=== PATIENT | male | born 1965 | race African-American/Black ===

== ENCOUNTER 2021-10-12 19:25 | Emergency (ER) | payer MEDICAID, SELFPAY ==
[2021-10-12 19:26] VITALS: BP 171/100; PULSE 76; RESP 18; TEMP 36.3; O2SAT 98; BMI 36.5
[2021-10-12 19:37] VITALS: BP 170/100; PULSE 78; RESP 14; O2SAT 99
--- NOTE | 2021-10-12 19:47 | CT_ITS ---
INDICATION: Dizziness EXAMINATION: CT BRAIN - CT Head or Brain W/O Contrast Injection TECHNIQUE: Multiple axial images were obtained of the head without intravenous contrast. A radiation dose optimization technique was used for this scan. IV Contrast dosage and agent: None. COMPARISON: None. FINDINGS: BRAIN PARENCHYMA: No intra- or extra-axial hemorrhage. No intracranial mass or mass effect. T[place]/white matter differentiation is maintained and there is no blurring of the basal ganglia. There is no hyperdense vessel. Right lenticulostriate region 1 cm CSF density likely representing prominent perivascular space. Posterior fossa structures are unremarkable. CSF SPACES: Appropriate for age. No hydrocephalus. Basal cisterns are patent. CALVARIUM, SKULL BASE, PARANASAL SINUSES AND MASTOID AIR CELLS: Clear. No discrete lytic or blastic abnormalities. ORBITS: Both globes, extraocular muscles, optic nerves and retrobulbar fat appear unremarkable. ASPECTS Score for Acute Strokes: 10 CT/Brain/Head without Contrast IMPRESSION: Negative Brain CT without contrast. Electronically Signed: Franc Durham DO at 20:51 EDT ,
--- NOTE | 2021-10-12 19:48 | EX.ED.DYSGE1 ---
HPI History of Present Illness Chief Complaint: Dizziness Narrative Narrative: Patient presents with dizziness and intermittent headaches that he has had for at least a week. He states he wakes up in the morning and feels dizzy. He states is worse when he tries to stand up he feels as if he is going to fall and has to sit back down. He states he has been out of his blood pressure medications for at least 2 months. However, when he gets headaches he states its not secondary to elevated blood pressure. He feels mildly presyncopal. He denies any chest pain or shortness of breath. No other symptoms. He states he went to [place] today and they gave him blood pressure medications and did nothing else so he presents again today because of his dizziness, worse with standing, and his near syncope. He denies any problems with urination, no other symptoms. [facility] Medical History Diabetes Hyperlipemia Hypertension Home Medications amlodipine 10 mg PO DAILY 10/12/21 [History Last Taken 10/12/21] atorvastatin 20 mg PO DAILY 10/12/21 [History Last Taken 10/11/21] metformin 500 mg PO BID 10/12/21 [History Last Taken 10/12/21] omeprazole 40 mg PO DAILY 10/12/21 [History Last Taken 10/12/21] Allergy/AdvReac Type Severity Reaction Status Date / Time Penicillins Allergy Itching Verified 10/12/21 19:27 tramadol AdvReac Vomiting Verified 10/12/21 19:27 Surgical History History of hip surgery Social History Smoking Status: Former smoker ROS ROS ED ROS Narrative Constitutional: No fever, no chills. HEENT: No sore throat. No neck pain. No loss of vision. No rhinorrhea. Cardiovascular: No chest pain. No palpitations. No pedal edema. Respiratory: No cough, no shortness of breath. Abdominal: No abdominal pain. No nausea. No vomiting. Genitourinary: No dysuria. No hematuria. Musculoskeletal: No myalgias. No arthralgias. Neurologic: Positive headaches. Positive dizziness. Positive lightheadedness. Skin: No rash. No change in color. Psychiatric: No depression. No anxiety. EXAM Physical Exam Narrative Exam Narrative: Afebrile. Vital signs noted. Blood pressure 171/100 HEENT: Normocephalic. Atraumatic. PERRL, EOMI. Neck soft and supple. No point tenderness or step off. Cardiovascular: Regular rate and rhythm. No murmurs, rubs, or gallops appreciated. Respiratory: No tachypnea. Lungs clear to auscultation bilaterally. Gastrointestinal: Abdomen soft, nontender, with normoactive bowel sounds. No rebound or guarding. Neurological: Awake. Alert. Nonfocal, nonlateralizing. Skin: No rash. Normal color. No pallor. Musculoskeletal: No pedal edema. Full range of motion extremities. Const Vital Signs: 10/12/21 19:26 10/12/21 19:37 10/12/21 20:50 Temperature 97.3 F L Temperature Source Temporal Pulse Rate 76 78 Pulse Rate [Lying] 73 Pulse Rate [Sitting (for 1 minute prior to obtaining)] 77 Pulse Rate [Standing (for 1 minute prior to obtaining)] 82 Respiratory Rate 18 14 Respiratory Pattern Normal Blood Pressure 171/100 H 170/100 H Blood Pressure [Lying] 149/91 H Blood Pressure [Sitting (for 1 minute prior to obtaining)] 156/103 H Blood Pressure [Standing (for 1 minute prior to obtaining)] 154/103 H Blood Pressure Mean 123 123 Blood Pressure Mean [Lying] 110 Blood Pressure Mean [Sitting (for 1 minute prior to obtaining)] 120 Blood Pressure Mean [Standing (for 1 minute prior to obtaining)] 120 Pulse Ox 98 99 Oxygen Delivery Method Room Air Room Air MDM MDM MDM Narrative Medical decision making narrative: Orthostatics, CT the brain, and basic laboratory work was obtained including CBC and CMP. He is not having any chest pain. He was administered hydralazine 10 mg intravenously. CBC shows normal white count of 8.0, hemoglobin normal at 14.8. Electrolyte panel is grossly unremarkable except for glucose of 119 with a normal anion gap of 6. LFTs are grossly unremarkable. CT of the brain shows no acute process. Orthostatics are negative. He was administered hydralazine 10 mg intravenously, and systolic blood pressure now in the 130's. He states whenever he sits up he gets dizzy. His EKG demonstrates normal sinus rhythm at 69 bpm without ectopy or acute ST changes, no STEMI. At this point in time, given his dizziness worse with standing, I offered him meclizine, but he declined. He did not want a prescription for anything. He was advised to keep a log of his blood pressures, and stand up slowly. He will follow-up with his primary care physician in the next 1 to 2 days. Return instructions were reviewed. Disposition is discharged home in stable condition. Lab Data Attestation: I reviewed the patient's lab results. Labs: Laboratory Results - last 24 hr 10/12/21 10/12/21 19:42 19:42 WBC 8.0 RBC 4.90 Hgb 14.8 Hct 44.7 MCV 91.2 MCH 30.2 MCHC 33.1 RDW Std Deviation 47.8 H RDW Coeff of Lindsay 14.1 Plt Count 188 MPV 10.7 Sodium 138 Potassium 3.7 Chloride 105 Carbon Dioxide 27.0 Anion Gap 6 BUN 15 Creatinine 1.07 Estim Creat Clear Calc 76.36 Est GFR (MDRD) Af Amer 93 Est GFR (MDRD) Non-Af 77 BUN/Creatinine Ratio 14.0 Glucose 119 H Calcium 8.9 Total Bilirubin 0.30 AST 19 ALT 33 Alkaline Phosphatase 94 Total Protein 7.3 Albumin 4.0 Globulin 3.3 Albumin/Globulin Ratio 1.2 Radiography Diagnostic Testing: Clinical Impression(s) from Imaging Studies Brain CT 10/12/21 19:47 IMPRESSION: Negative Brain CT without contrast. Electronically Signed: Franc Durham DO at 20:51 EDT , Discharge Plan Triage Chief Complaint: Dizziness ED Provider: Lito Brewer Dx/Rx/DC Orders Clinical Impression: Dizziness, Hypertension Instructions: ED Dizziness, Uncertain Cause, ED High Blood Pressure Hypertension Prescriptions: No Action atorvastatin 20 mg tablet 20 mg PO DAILY RF: 0 omeprazole 40 mg capsule,delayed release(DR/EC) 40 mg PO DAILY RF: 0 amlodipine 10 mg tablet 10 mg PO DAILY RF: 0 metformin 500 mg tablet extended release 24 hr 500 mg PO BID RF: 0 Primary Care Provider: Araseli Delgado NP Referrals: Danny,Araseli FISHERIES TECHNICIAN, FISHERIES TECHNICIAN-C [Primary Care Provider] - 1-2 Days if not improving Disposition Disposition: Home, Self Care
--- NOTE | 2021-10-12 19:51 | EKG12_ITS ---
Test Reason : DIZZINESS Blood Pressure : / mmHG Vent. Rate : 069 BPM Atrial Rate : 069 BPM P-R Int : 166 ms QRS Dur : 084 ms QT Int : 380 ms P-R-T Axes : 045 025 037 degrees QTc Int : 407 ms Normal sinus rhythm Nonspecific ST and T wave abnormality Abnormal ECG Confirmed by RUFINO CHEEMA, STANLEY ([id number]), order editor JAZMYNE VALENCIA ([id number]) on 10/13/2021 2:00:32 PM Referred By: GABE Confirmed By:TSANLEY JOY MD
[2021-10-12] MEDS: hydrALAZINE 20 MG/ML Vial 10 MG IV (19:56)
[2021-10-12 19:59] LABS: Hematocrit 44.7 % (40-54); Hemoglobin 14.8 g/dL (13.0-16.5); Mean Corp Hgb Conc 33.1 g/dL (32-36); Mean Corpuscular Hgb 30.2 pg (27.0-32.0); Mean Corpuscular Volume 91.2 fL (80-94); Mean Platelet Vol. 10.7 fl (6.2-12.0); Platelet Count 188 K/mm3 (150-450); RBC Distribution Width CV 14.1 % (11.6-14.6); RBC Distribution Width SD 47.8 fl (35.1-43.9)
[2021-10-12 20:16] LABS: ALB/GLOB Ratio 1.2 RATIO (0.9-2.4); AST(SGOT) 19 U/L (15-37); Alanine Aminotransfer ALT/SGPT 33 U/L (16-61); Alkaline Phosphatase 94 U/L (45-117); Anion Gap 6 (5-15); BUN 15 mg/dL (7-18); Calcium,Total 8.9 mg/dL (8.5-10.1); Chloride 105 mmol/L (98-107); Creatinine, Serum 1.07 mg/dL (0.70-1.30); EST Glomerular Filtration Rate 77 mL/min (>60); Est Glom Filt Rate - Afr Amer 93 mL/min (>60); Estimated Creatinine Clearance 76.36 ml/min; Globulin 3.3 g/dL (2.2-4.2); Glucose 119 mg/dL (74-106); Potassium 3.7 mmol/L (3.5-5.1); Protein, Total 7.3 g/dL (6.4-8.2); Sodium Level 138 mmol/L (136-145)
[2021-10-12 20:50] VITALS: BP 149/91; BP 154/103; BP 156/103; PULSE 73; PULSE 77; PULSE 82
[2021-10-12 21:39] VITALS: BP 135/91; PULSE 70; RESP 18; O2SAT 97
== END 2021-10-12 21:41 | disposition home or self-care (01) ==
PROVIDERS: Emergency Provider Emergency Medicine; PCP Nurse Practitioner Primary Care; Visit Provider Emergency Medicine
DX: R42 Dizziness and giddiness (principal); E11.9 Type 2 diabetes mellitus without complications; I10 Essential (primary) hypertension; E78.5 Hyperlipidemia, unspecified; Z87.891 Personal history of nicotine dependence; Z79.84 Long term (current) use of oral hypoglycemic drugs; Z79.899 Other long term (current) drug therapy
CPT/HCPCS: 70450; 80053; 85027; 93005; 96374; 99285; A4216

== ENCOUNTER 2021-12-15 08:27 | Emergency (ER) | payer MEDICARE, MEDICAID, SELFPAY ==
[2021-12-15 08:28] VITALS: BP 138/97; PULSE 72; RESP 18; TEMP 36.6; O2SAT 98; BMI 37.2
--- NOTE | 2021-12-15 09:04 | EDS_ITS ---
HPI History of Present Illness Chief Complaint: Back Narrative Narrative: 56-year-old male presenting with left posterior rib pain since Wednesday. Patient states he was sitting at his desk and he stood up and the pain started abruptly. He states that the pain radiates around the left flank into the central abdomen. He also states at times it radiates around to the right. Patient states the pain feels like a twisting. The pain is now constant. Its not associated with eating food. He does not have any nausea or vomiting. He denies fever or chills. He denies cough but does state he feels a little bit short of breath because of the pain in the left ribs/flank. Denies constipation or diarrhea. No urinary complaints. [facility] Medical History Diabetes Hyperlipemia Hypertension Neuropathy Home Medications amlodipine 10 mg tablet 10 mg PO DAILY blood pressure 10/12/21 [History Last Taken 10/12/21] atorvastatin 20 mg tablet 20 mg PO DAILY cholesterol 10/12/21 [History Last Taken 10/11/21] metformin 500 mg tablet,extended release 24 hr 500 mg PO BID diabetes 10/12/21 [History Last Taken 10/12/21] omeprazole 40 mg capsule,delayed release 40 mg PO DAILY GERD 10/12/21 [History Last Taken 10/12/21] gabapentin 300 mg capsule 300 mg PO TID 12/15/21 [History Last Taken Unknown] lisinopril 10 mg tablet 10 mg PO DAILY 12/15/21 [History Last Taken Unknown] naproxen 500 mg tablet (Naprosyn) 500 mg PO BID PRN pain #20 tabs 12/15/21 [Rx Last Taken Unknown] tizanidine 4 mg capsule (Zanaflex) 4 mg PO TID PRN muscle spasticity #20 caps 12/15/21 [Rx Last Taken Unknown] Allergy/AdvReac Type Severity Reaction Status Date / Time No Known Allergies Allergy Verified 12/15/21 08:30 Surgical History History of hip surgery Social History Smoking Status: Former smoker ROS ROS ED Eyes Eyes: Denies blurry vision or change in vision ENT ENT ED: Denies rhinorrhea or sore throat Cardiovascular Cardiovascular: Reports chest pain Respiratory/Chest Respiratory/Chest: Reports dyspnea and other Details: Left rib pain Gastrointestinal Gastrointestinal: Denies abdominal pain, constipation, diarrhea, melena, nausea or vomiting Genitourinary Genitourinary ED: Denies dysuria, hematuria or urinary frequency Musculoskeletal Musculoskeletal: Reports back pain Integumentary Denies abscess or Abrasions Neurologic Neurologic: Denies headache(s) or paresthesias Psychiatric Psychiatric: Denies anxiety or depression EXAM Physical Exam Const Vital Signs: 12/15/21 08:28 Temperature 97.9 F Temperature Source Temporal Pulse Rate 72 Respiratory Rate 18 Blood Pressure 138/97 H Blood Pressure Mean 110 Pulse Ox 98 Oxygen Delivery Method Room Air Positive well nourished General Appearance ED: NAD; Negative for pallor HEENT Reports moist mucous membranes Eyes PERRL and EOMs intact bilaterally Chest Wall Chest Narrative: Equal symmetric breath sounds and chest wall rise. Resp normal respiratory effort and clear to auscultation bilaterally Auscultation: Negative for rales, rhonchi or wheezes Cardio regular rate and regular rhythm GI normal to inspection, nondistended, normoactive bowel sounds Back/Spine normal to inspection and no thoracic nor lumbar tenderness General Back: CVA tenderness left Cervical Spine: Negative for cervical spine tenderness Extremity normal to inspection General Extremety ED: Negative for edema or tenderness General Extremity: Negative for edema Neuro oriented x3 Sensorium / Orientation: alert; Negative for confused Psych mental status grossly normal Skin no rashes or lesions noted General Skin Exam: Negative for jaundice or pallor MDM MDM MDM Narrative Medical decision making narrative: Patient presenting with left-sided back pain and does have CVA tenderness on exam although he has no symptoms of nausea, dysuria, hematuria. He states this started hurting when he stood up. Because the etiology is unclear an IV was established. Patient given morphine and Zofran. Blood work was obtained and h is CBC and CMP are unremarkable. Lipase normal. I obtained a left rib series due to the left-sided pain and mild shortness of breath and his left rib series on my interpretation shows no acute fracture, pneumothorax, other acute findings. Patient reevaluated and states he still had some pain so he was given Toradol. Urinalysis was negative for occult blood. There is no evidence of infection. I suspect patient likely has a thoracic strain. I will give him Zanaflex and Naprosyn for home. He is to follow-up with his PCP to ensure resolution. Impression: 1. Thoracic strain Lab Data Attestation: I reviewed the patient's lab results. Labs: Laboratory Results - last 24 hr 12/15/21 12/15/21 12/15/21 09:10 09:10 10:25 WBC 6.1 RBC 4.77 Hgb 14.4 Hct 43.1 MCV 90.4 MCH 30.2 MCHC 33.4 RDW Std Deviation 47.1 H RDW Coeff of Lindsay 14.3 Plt Count 188 MPV 10.5 Immature Gran % (Auto) 0.200 Neut % (Auto) 49.0 Lymph % (Auto) 38.3 [place] % (Auto) 9.9 Eos % (Auto) 2.3 Baso % (Auto) 0.3 Absolute Neuts (auto) 3.0 Absolute Lymphs (auto) 2.33 Nucleated RBC % 0 Sodium 138 Potassium 4.4 Chloride 107 Carbon Dioxide 29.0 Anion Gap 2 L BUN 10 Creatinine 1.05 Estim Creat Clear Calc 77.81 Est GFR (MDRD) Af Amer 95 Est GFR (MDRD) Non-Af 78 BUN/Creatinine Ratio 9.5 L Glucose 107 H Calcium 8.8 Total Bilirubin 0.30 AST 20 ALT 25 Alkaline Phosphatase 90 Total Protein 7.1 Albumin 3.8 Globulin 3.3 Albumin/Globulin Ratio 1.2 Lipase 198 Urine Color Yellow Urine Clarity Clear Urine pH 6.0 Ur Specific [place] 1.010 Urine Protein Negative Urine Glucose (UA) Normal Urine Ketones Negative Urine Occult Blood Negative Urine Nitrite Negative Urine Bilirubin Negative Urine Urobilinogen Normal Ur Leukocyte Esterase Negative Radiography Diagnostic Testing: Clinical Impression(s) from Imaging Studies Ribs w/Chest X-Ray 12/15/21 09:35 IMPRESSION: RIBS: Normal x-ray examination of the ribs. CHEST: Normal x-ray examination of the chest. Electronically Signed: Alex Salmon MD at 9:56 EDT , Discharge Plan Triage Chief Complaint: Back ED Provider: Tony Bergman Dx/Rx/DC Orders Instructions: ED Back Spasm, No Trauma Prescriptions: New tizanidine [Zanaflex] 4 mg capsule 4 mg PO TID PRN (Reason: muscle spasticity) Qty: 20 0RF naproxen [Naprosyn] 500 mg tablet 500 mg PO BID PRN (Reason: pain) Qty: 20 0RF No Action atorvastatin 20 mg tablet 20 mg PO DAILY Label Comments: take 1 tablet by mouth once daily omeprazole 40 mg capsule,delayed release(DR/EC) 40 mg PO DAILY Label Comments: take 1 capsule by mouth once daily BEFORE A MEAL amlodipine 10 mg tablet 10 mg PO DAILY Label Comments: take 1 tablet by mouth once daily metformin 500 mg tablet extended release 24 hr 500 mg PO BID Label Comments: take 1 tablet by mouth twice a day lisinopril 10 mg tablet 10 mg PO DAILY Label Comments: take 1 tablet by mouth once daily gabapentin 300 mg capsule 300 mg PO TID Label Comments: take 1 capsule by mouth three times a day Primary Care Provider: Araseli Delgado NP Referrals: Araseli Delgado NP, SANITATION LABORER-C [Primary Care Provider] - Disposition Disposition: Home, Self Care
[2021-12-15 09:17] LABS: Absolute Lymphocyte Count 2.33 X10^3/uL (0.83-4.51); Basophil# 0.02 X10^3/uL; Basophil% 0.3 % (0-1); Eosinophil# 0.14 X10^3/uL; Eosinophils% 2.3 % (0-5); Hematocrit 43.1 % (40-54); Hemoglobin 14.4 g/dL (13.0-16.5); Lymphocyte # 2.33 X10^3/ul (0.83-4.51); Lymphocyte % 38.3 % (19-41); Mean Corp Hgb Conc 33.4 g/dL (32-36); Mean Corpuscular Hgb 30.2 pg (27.0-32.0); Mean Corpuscular Volume 90.4 fL (80-94); Mean Platelet Vol. 10.5 fl (6.2-12.0); Monocyte% 9.9 % (0-10); NRBC Flagged by Analyzer 0 % (0-5); Neutrophil # 2.98 X10^3/uL (2.7-7.7); Platelet Count 188 K/mm3 (150-450); RBC Distribution Width CV 14.3 % (11.6-14.6); RBC Distribution Width SD 47.1 fl (35.1-43.9); Red Blood Count 4.77 M/mm3 (4.6-6.2); White Blood Count 6.1 K/mm3 (4.4-11.0)
[2021-12-15] MEDS: Ondansetron 4 MG/2 ML Vial IV (09:21)
[2021-12-15] MEDS: Morphine 4 MG/ML Syringe IV (09:21)
[2021-12-15 09:33] LABS: ALB/GLOB Ratio 1.2 RATIO (0.9-2.4); AST(SGOT) 20 U/L (15-37); Alanine Aminotransfer ALT/SGPT 25 U/L (16-61); Albumin, Serum 3.8 g/dL (3.2-5.0); Alkaline Phosphatase 90 U/L (45-117); Anion Gap 2 (5-15); BUN 10 mg/dL (7-18); BUN/Creat Ratio 9.5 RATIO (10-20); Calcium,Total 8.8 mg/dL (8.5-10.1); Chloride 107 mmol/L (98-107); Creatinine, Serum 1.05 mg/dL (0.70-1.30); EST Glomerular Filtration Rate 78 mL/min (>60); Est Glom Filt Rate - Afr Amer 95 mL/min (>60); Estimated Creatinine Clearance 77.81 ml/min; Globulin 3.3 g/dL (2.2-4.2); Glucose 107 mg/dL (74-106); Lipase 198 U/L (73-393); Potassium 4.4 mmol/L (3.5-5.1); Protein, Total 7.1 g/dL (6.4-8.2); Sodium Level 138 mmol/L (136-145)
--- NOTE | 2021-12-15 09:35 | RAD_ITS ---
STUDY: X-RAY - UNILATERAL RIBS ( LEFT ) WITH CHEST REASON FOR EXAM: Male, 56 years old. Atraumatic left lower rib pain. TECHNIQUE - RIBS: 4 view(s) of the ribs. TECHNIQUE - CHEST: Single PA view of the chest. COMPARISON: None. FINDINGS - RIBS: Normal visualized ribs without a demonstrated fracture. FINDINGS - CHEST: The lungs are clear and expanded. There is no demonstrated pleural abnormality. Normal size heart. Normal mediastinum and karin. Normal visualized pulmonary arteries. Normal visualized aortic arch and descending thoracic aorta. Normal visualized thoracic spine. Normal visualized ribs, clavicles, and shoulders. There is no demonstrated abnormality of the visualized soft tissue structures of the upper abdomen. RAD/Ribs Uni Min 3V w/PA Chest IMPRESSION: RIBS: Normal x-ray examination of the ribs. CHEST: Normal x-ray examination of the chest. Electronically Signed: Alex Salmon MD at 9:56 EDT ,
[2021-12-15] MEDS: Ketorolac 15 MG/ML Vial IV (09:46)
[2021-12-15 10:36] LABS: Bacteria 0 SEEN /hpf (None Seen); Mucous, Urine 0 SEEN /hpf (<or=2+); Red Blood Cells-Urine 0 SEEN /hpf (0-5); Squamous Epithelial Cells - UA 0 SEEN /hpf (0-5); White Blood Cells 0 SEEN /hpf (0-5)
[2021-12-15 10:38] LABS: Color, Urine Yellow (Yellow); Glucose, Dipstick Normal (Normal); Ketone-Dipstick Negative (Negative); Leukocyte Esterase-Dipstick Negative /ul (Negative); Nitrite-Dipstick Negative (Negative); Occult Blood-Urine Negative /ul (Negative); Protein-Dipstick Negative (Negative); Urine Bilirubin Dipstick Negative (Negative); Urine Clarity Clear (Clear); Urine Urobilinogen Normal (Normal)
== END 2021-12-15 11:13 | disposition home or self-care (01) ==
PROVIDERS: Emergency Provider Student in an Organized Health Care Education/Training Program; PCP Nurse Practitioner Primary Care; Visit Provider Student in an Organized Health Care Education/Training Program
DX: S29.019A Strain of muscle and tendon of unspecified wall of thorax, initial encounter (principal); E11.40 Type 2 diabetes mellitus with diabetic neuropathy, unspecified; I10 Essential (primary) hypertension; E78.5 Hyperlipidemia, unspecified; Z79.899 Other long term (current) drug therapy; Z79.84 Long term (current) use of oral hypoglycemic drugs; Z87.891 Personal history of nicotine dependence; X58.XXXA Exposure to other specified factors, initial encounter
CPT/HCPCS: 71101; 80053; 81001; 83690; 85025; 96374; 96375; 99283; A4216; J2405

== ENCOUNTER 2021-12-25 08:04 | Emergency (ER) | payer MEDICARE, MEDICAID, SELFPAY ==
[2021-12-25 08:05] VITALS: BP 153/88; PULSE 72; RESP 14; TEMP 36.1; O2SAT 98; BMI 35.7
--- NOTE | 2021-12-25 08:26 | EDS_ITS ---
HPI History of Present Illness Chief Complaint: Back Informant: patient Onset/Context/Timing Onset: Days (4) Context: Gradual Onset Timing: Continuous Quality: Sharp Location: Lumbar and Buttock Worsened by: improves with - (Laying, sitting) Relieved by: Nothing Associated Symptoms Associated Symptoms: Negative for Numbness, Tingling, Radiation to Right Leg, Radiation to Left Leg, Fever, Abdominal Pain, Dysuria, Unable to Ambulate, Unable to Transfer, Urinary Retention, Urinary Incontinence, Constipation or Fecal Incontinence Narrative Narrative: Patient presents with low back pain that has been getting worse over the last 4 days. Patient states it is in his lower lumbar area and sacral area. Patient states it is slightly worse than the left. Patient denies any radiation of the pain. Patient states the pain is worse with sitting and laying down. Patient states nothing seems to help with the pain. Patient describes the pain as sharp. Patient states the pain is been constant. Patient denies any bowel or bladder changes. Patient denies any saddle anesthesia. [facility] Medical History Back pain Diabetes Hyperlipemia Hypertension Neuropathy Home Medications amlodipine 10 mg tablet 10 mg PO DAILY blood pressure 10/12/21 [History Last Taken 10/12/21] atorvastatin 20 mg tablet 20 mg PO DAILY cholesterol 10/12/21 [History Last Taken 10/11/21] metformin 500 mg tablet,extended release 24 hr 500 mg PO BID diabetes 10/12/21 [History Last Taken 10/12/21] omeprazole 40 mg capsule,delayed release 40 mg PO DAILY GERD 10/12/21 [History Last Taken 10/12/21] gabapentin 300 mg capsule 300 mg PO TID 12/15/21 [History Last Taken Unknown] lisinopril 10 mg tablet 10 mg PO DAILY 12/15/21 [History Last Taken Unknown] naproxen 500 mg tablet (Naprosyn) 500 mg PO BID PRN pain #20 tabs 12/15/21 [Rx Last Taken Unknown] tizanidine 4 mg capsule (Zanaflex) 4 mg PO TID PRN muscle spasticity #20 caps 12/15/21 [Rx Last Taken Unknown] Allergy/AdvReac Type Severity Reaction Status Date / Time No Known Allergies Allergy Verified 12/25/21 08:05 Surgical History History of hip surgery Social History Smoking Status: Former smoker ROS ROS ED Constitutional Constitutional ED: Denies chills or fever(s) Eyes Eyes: Denies blurry vision or change in vision ENT ENT ED: Denies rhinorrhea or sore throat Cardiovascular Cardiovascular: Denies chest pain or palpitations Respiratory/Chest Respiratory/Chest: Denies cough or dyspnea Gastrointestinal Gastrointestinal: Denies nausea or vomiting Genitourinary Genitourinary ED: Denies dysuria or hematuria Musculoskeletal Musculoskeletal: Reports back pain; Denies neck pain Integumentary Denies abscess or rash Neurologic Neurologic: Denies headache(s) or weakness Allergic/Immunologic Allergic/Immunologic ED: Denies mouth swelling or urticaria EXAM Physical Exam Const Vital Signs: 12/25/21 08:05 Temperature 97 F L Temperature Source Temporal Pulse Rate 72 Respiratory Rate 14 Blood Pressure 153/88 H Blood Pressure Mean 109 Pulse Ox 98 Oxygen Delivery Method Room Air Positive well nourished and well developed General Appearance ED: well developed and NAD HEENT Reports moist mucous membranes Back/Spine Back/Spine Narrative: There is tenderness over the lumbosacral junction and sacroiliac joints, worse on the left. There is no edema or ecchymosis. There is no bony crepitance or step-off. There is good range of motion of the lumbar spine. Strength is 5/5 bilaterally in the lower extremities. Straight leg raises were negative bilaterally. There are no sensory deficits noted. Deep tendon reflexes are 2+/4 bilaterally in the lower extremities. Lumbar Spine / Lower Back: straight leg raise negative bilaterally Extremity Extremity Narrative: There is an area of mild tenderness and edema over the medial aspect of the right lower leg. There is no bony crepitance or step-off. There is no ecchymosis. There is some mild erythema. There is no discharge or drainage. Neuro oriented x3 and no sensory deficits noted Sensorium / Orientation: alert Motor Exam: strength 5/5 throughout Deep Tendon Reflexes: Rt Patellar (L4): 2+, Lt Patellar (L4): 2+, Rt Ankle (S1): 2+ and Lt Ankle (S1): 2+ Deep Tendon Reflexes Back: Rt Patellar (L4): 2+, Lt Patellar (L4): 2+, Rt Ankle (S1): 2+ and Lt Ankle (S1): 2+ Psych mental status grossly normal MDM MDM MDM Narrative Medical decision making narrative: Patient was advised that the area on his right lower leg appears to be a superficial phlebitis. Patient was instructed to use warm compresses for this. Patient was advised that his back pain may be from sacroiliitis. Patient was given a prescription for Naprosyn. Patient was instructed to use ice to the area. Patient was instructed to follow-up with his primary care physician in 5 to 7 days. Patient understood and was agreeable with the plan. All questions were answered. Discharge Plan Triage Chief Complaint: Back ED Provider: Nicolás Mao Dx/Rx/DC Orders Clinical Impression: Sacroiliitis, Superficial phlebitis of right leg Instructions: ED Thrombophlebitis, Superficial, ED Sacroiliitis Prescriptions: Continued naproxen [Naprosyn] 500 mg tablet 500 mg PO BID PRN (Reason: pain) Qty: 20 0RF No Action atorvastatin 20 mg tablet 20 mg PO DAILY Label Comments: take 1 tablet by mouth once daily omeprazole 40 mg capsule,delayed release(DR/EC) 40 mg PO DAILY Label Comments: take 1 capsule by mouth once daily BEFORE A MEAL amlodipine 10 mg tablet 10 mg PO DAILY Label Comments: take 1 tablet by mouth once daily metformin 500 mg tablet extended release 24 hr 500 mg PO BID Label Comments: take 1 tablet by mouth twice a day lisinopril 10 mg tablet 10 mg PO DAILY Label Comments: take 1 tablet by mouth once daily gabapentin 300 mg capsule 300 mg PO TID Label Comments: take 1 capsule by mouth three times a day tizanidine [Zanaflex] 4 mg capsule 4 mg PO TID PRN (Reason: muscle spasticity) Qty: 20 0RF Primary Care Provider: Araseli Delgado NP Referrals: Araseli Delgado NP, MORTGAGE LOAN REVIEWER-C [Primary Care Provider] - 5-7 Days Disposition Disposition: Home, Self Care
== END 2021-12-25 08:53 | disposition home or self-care (01) ==
PROVIDERS: Emergency Provider Emergency Medicine; PCP Nurse Practitioner Primary Care; Visit Provider Emergency Medicine
DX: M46.1 Sacroiliitis, not elsewhere classified (principal); E11.40 Type 2 diabetes mellitus with diabetic neuropathy, unspecified; I80.01 Phlebitis and thrombophlebitis of superficial vessels of right lower extremity; E78.5 Hyperlipidemia, unspecified; I10 Essential (primary) hypertension; Z79.899 Other long term (current) drug therapy; Z79.84 Long term (current) use of oral hypoglycemic drugs; Z87.891 Personal history of nicotine dependence
CPT/HCPCS: 99282

== ENCOUNTER 2023-09-14 17:02 | Emergency (ER) | payer MEDICARE, MEDICAID, SELFPAY ==
[2023-09-14 17:04] VITALS: BP 140/111; PULSE 89; RESP 18; TEMP 35.9; O2SAT 96; BMI 31.4
--- NOTE | 2023-09-14 17:31 | EDS_ITS ---
HPI History of Present Illness Chief Complaint: Other, Pain/Inj Informant: patient Narrative Narrative: Presents noting blood on his right parietal scalp 3 days ago. He shaved his head few days prior to that. However for the last 9 days no some numbness around his ears. Palpate his neck noted a bump that is tender today. Noticed tingling in his fingers throughout all 5. No headache or weakness. History of cervical radiculopathy 2017 conservatively treated with improvement. Is followed by his PCP. Denies fevers. Reports went to [facility] 2 days ago placed on Motrin and Flexeril, he does not like the Flexeril as it makes him sleepy. He took a couple Motrin however none today. [facility] Medical History Arthritis Back pain Neuropathy Home Medications amlodipine 10 mg tablet 10 mg PO DAILY blood pressure 10/12/21 [History Last Taken 10/12/21] atorvastatin 20 mg tablet 20 mg PO DAILY cholesterol 10/12/21 [History Last Taken 10/11/21] metformin 500 mg tablet,extended release 24 hr 500 mg PO BID diabetes 10/12/21 [History Last Taken 10/12/21] omeprazole 40 mg capsule,delayed release 40 mg PO DAILY GERD 10/12/21 [History Last Taken 10/12/21] gabapentin 300 mg capsule 300 mg PO TID 12/15/21 [History Last Taken Unknown] lisinopril 10 mg tablet 10 mg PO DAILY 12/15/21 [History Last Taken Unknown] naproxen 500 mg tablet (Naprosyn) 500 mg PO BID PRN pain #20 tabs 12/15/21 [Rx Last Taken Unknown] tizanidine 4 mg capsule (Zanaflex) 4 mg PO TID PRN muscle spasticity #20 caps 12/15/21 [Rx Last Taken Unknown] Allergy/AdvReac Type Severity Reaction Status Date / Time No Known Allergies Allergy Verified 09/14/23 17:03 Surgical History History of hip surgery Social History Smoking Status: Former smoker ROS ROS ED Constitutional Constitutional ED: Denies chills, fever(s) or sweats Eyes Eyes: Denies change in vision ENT ENT ED: Denies dysphagia or sore throat Cardiovascular Cardiovascular: Denies chest pain, leg edema, palpitations or racing heartbeat Respiratory/Chest Respiratory/Chest: Denies cough, dyspnea or dyspnea on exertion Gastrointestinal Gastrointestinal: Denies abdominal pain, diarrhea, nausea or vomiting Genitourinary Genitourinary ED: Denies dysuria, hematuria or urinary frequency Musculoskeletal Musculoskeletal: Reports neck pain; Denies back pain or extremity pain Integumentary Reports wounds; Denies rash Neurologic Neurologic: Denies headache(s), paresthesias or weakness EXAM Physical Exam Const Vital Signs: 09/14/23 17:04 09/14/23 17:18 Temperature 96.7 F L Temperature Source Temporal Pulse Rate 89 Respiratory Rate 18 Respiratory Effort Normal Non-Labored Respiratory Pattern Normal Blood Pressure 140/111 H Blood Pressure Mean 120 Pulse Ox 96 Oxygen Delivery Method Room Air Positive well nourished and well developed General Appearance ED: well developed and NAD HEENT Reports moist mucous membranes HEENT Narrative: 2 small scabbing noted right parietal no fluctuance no swelling no surrounding erythema or any active drainage. No vesicles noted. normocephalic and atraumatic Eyes PERRL, EOMs intact bilaterally and conjunctivae normal General Eye ED: Yes normal appearance of both eyes Neck supple Neck Narrative: Posterior right superior adenopathy tender to palpation pea-sized. C2 somatic function on the right side bent rotated to the right. No rash or lesions along the neck line. General: Negative for tenderness Chest Wall inspection of chest normal and palpation of chest normal Chest: Negative for tenderness Resp normal respiratory effort and normal air movement Effort and Inspection: symmetric chest movement; Negative for respiratory distress Cardio regular rate, regular rhythm and no murmurs Peripheral Pulses: pulses 2+ throughout GI normal to inspection, nondistended, normoactive bowel sounds and non-tender Palpation: Negative for guarding or rebound tenderness present Back/Spine no CVA tenderness and no thoracic nor lumbar tenderness Extremity normal to inspection General Extremety ED: Negative for edema or tenderness General Extremity: Negative for edema Neuro oriented x3 and no sensory deficits noted Sensorium / Orientation: awake and alert Skin no rashes or lesions noted and no wounds MDM MDM MDM Narrative Medical decision making narrative: Interventions / MDM: Differential diagnosis: Folliculitis, cervical adenitis, somatic dysfunction cervical spine. Shingles, Diagnosis considered but do not suspect: pain today rating into the left side crosses midline therefore less likely. My EKG interpretation: N/A Imaging independently reviewed and interpreted by myself: N/A External documents reviewed: N/A Test considered but not ordered:N/A ED course: Patient examination concerns for folliculitis is healing cervical adenitis from this region correlates to the location. He is reassured with this. Somatic function cervical spine palpated, discussed osteopathic manipulation for and she agreed. Performed both HVLA and similar position release with improved range of motion. He declines any medication in the ED. He will use Motrin at home. Drink plenty of fluids. Follow-up with his PCP. All questions were answered. Procedure note: Osteopathic manipulation. Patient laid supine head of on the bed. Facility positional release on the right side of the neck, HVLA C2 on the right performed. Patient tolerated well. Improve range of motion. Re-evaluation: stable Disposition discussed with patient/family/significant other: Patient Case discussed with consulting clinician: N/A This note was generated with [employer] dictation software. It may contain incorrect words, spelling, and punctuation that were not noted in checking the note before signing. Discharge Plan Triage Chief Complaint: Other, Pain/Inj Other Complaint: Numb/Ting ED Provider: José Miguel Gallego Dx/Rx/DC Orders Clinical Impression: Cervical adenitis, Folliculitis, Cervical somatic dysfunction Instructions: ED Adenitis Cervical No Abx Tx, ED Folliculitis, ED Neck Sprain or Strain Prescriptions: No Action atorvastatin 20 mg tablet 20 mg PO DAILY Patient Comments: take 1 tablet by mouth once daily omeprazole 40 mg capsule,delayed release(DR/EC) 40 mg PO DAILY Patient Comments: take 1 capsule by mouth once daily BEFORE A MEAL amlodipine 10 mg tablet 10 mg PO DAILY Patient Comments: take 1 tablet by mouth once daily metformin 500 mg tablet extended release 24 hr 500 mg PO BID Patient Comments: take 1 tablet by mouth twice a day lisinopril 10 mg tablet 10 mg PO DAILY Patient Comments: take 1 tablet by mouth once daily gabapentin 300 mg capsule 300 mg PO TID Patient Comments: take 1 capsule by mouth three times a day tizanidine [Zanaflex] 4 mg capsule 4 mg PO TID PRN (Reason: muscle spasticity) Qty: 20 0RF naproxen [Naprosyn] 500 mg tablet 500 mg PO BID PRN (Reason: pain) Qty: 20 0RF Primary Care Provider: Araseli Delgado NP Referrals: Araseli Delgado NP, [employer] [Primary Care Provider] - 1 Week if not improving Activity Restrictions/Additional Instructions: You have scalp folliculitis, with posterior cervical adenitis from this area. It is healing appropriately. No cellulitis or infection that warrants any antibiotics. Warm soap and water cleanses daily. Neck exam with somatic dysfunction osteopathic manipulation performed in the ED. Improved alignment and movement. Continue Motrin every 6 hours. Monitor for any vesicle lesions on the breakout along your side of scalp neck region that could be shingles however less likely with symptoms going to your left side. Disposition Disposition: Home, Self Care Discharge Date/Time: 09/14/23 17:38
== END 2023-09-14 17:38 | disposition home or self-care (01) ==
LOC: ED 17:37
PROVIDERS: Emergency Provider Emergency Medicine; PCP Nurse Practitioner Primary Care; Visit Provider Emergency Medicine
DX: I88.9 Nonspecific lymphadenitis, unspecified (principal); L73.9 Follicular disorder, unspecified; M99.01 Segmental and somatic dysfunction of cervical region; Z87.891 Personal history of nicotine dependence
CPT/HCPCS: 99283

== ENCOUNTER 2024-11-17 09:47 | Emergency (ER) | payer MEDICARE, MEDICAID, SELFPAY ==
[2024-11-17 09:48] VITALS: BP 141/119; PULSE 64; RESP 16; TEMP 36.9; O2SAT 99; BMI 31.1
[2024-11-17] MEDS: Ibuprofen 400 MG Tablet 800 MG PO (10:50)
--- NOTE | 2024-11-17 10:50 | RAD_ITS ---
PROCEDURE: FOOT MIN 3 VIEWS 11/17/2024 REASON FOR EXAM: PAIN TECHNIQUE: FOOT MIN 3 VIEWS COMPARISON: None FINDINGS: Bones: No visible fracture. No suspicious bone lesion. Joints: Normal alignment. Soft tissues: Soft tissue swelling. Other: RAD/Foot min 3 Views IMPRESSION: NO ACUTE FRACTURE OR DISLOCATION. Reading Location: [place] [id number]
--- NOTE | 2024-11-17 10:51 | ED.VIS.LOWEX ---
HPI History of Present Illness Chief Complaint: Lower Extremity Injury Narrative Narrative: 59-year-old male who denies significant past medical history presents with right foot pain that he has had for the last 3 to 4 days. He denies any injury, but does admit that he stands and walks and is on his feet all day. He states that it is the bottom of his foot towards his heel near a plantar wart that hurts, as well as on the lateral side. He feels as if his tendon along the top of his foot is strained as well. He denies any chest pain or shortness of breath, no fevers or chills, no swelling of his foot, no erythema. It is very tender to palpation diffusely throughout his right foot. [facility] Medical History Arthritis Back pain Neuropathy Home Medications ?Medication ?Instructions ?Recorded ?Last Taken ?Type amlodipine 10 mg tablet 10 mg PO DAILY blood pressure 10/12/21 10/12/21 History atorvastatin 20 mg tablet 20 mg PO DAILY cholesterol 10/12/21 10/11/21 History metformin 500 mg tablet,extended 500 mg PO BID diabetes 10/12/21 10/12/21 History release 24 hr omeprazole 40 mg capsule,delayed 40 mg PO DAILY GERD 10/12/21 10/12/21 History release gabapentin 300 mg capsule 300 mg PO TID 12/15/21 Unknown History lisinopril 10 mg tablet 10 mg PO DAILY 12/15/21 Unknown History naproxen 500 mg tablet (Naprosyn) 500 mg PO BID PRN pain #20 tabs 12/15/21 Unknown Rx tizanidine 4 mg capsule (Zanaflex) 4 mg PO TID PRN muscle spasticity 12/15/21 Unknown Rx #20 caps naproxen 500 mg tablet (Naprosyn) 500 mg PO BID PRN pain #20 tabs 11/17/24 Unknown Rx Allergy/AdvReac Type Severity Reaction Status Date / Time No Known Allergies Allergy Verified 11/17/24 09:50 Surgical History History of hip surgery Social History Smoking Status: Former smoker ROS ROS ED ROS Narrative Result of systems positive for right foot pain worse with palpation, standing, and walking. More on right plantar heel as well as right lateral foot, and dorsum of foot along first metatarsal. No chest pain or shortness of breath. No recent injury. EXAM Physical Exam Narrative Exam Narrative: Afebrile. Vital signs noted. Nontoxic-appearing. Cardiovascular examination regular rate and rhythm. Lungs clear to auscultation bilaterally. Abdomen soft and nontender. Focused examination of the right foot shows no evidence of erythema or swelling, no podagra, no crepitance. Palpable dorsalis pedis pulse. Mild tenderness palpation plantar fascia. Mild tenderness to palpation right lateral foot and first metatarsal. Const Vital Signs: 11/17/24 09:48 Temperature 98.5 F Temperature Source Oral Pulse Rate 64 Respiratory Rate 16 Blood Pressure 141/119 H Blood Pressure Mean 126 Pulse Ox 99 Oxygen Delivery Method Room Air MDM MDM MDM Narrative Medical decision making narrative: Differential diagnosis includes but not limited to foot strain versus sprain versus fracture versus gout. I have very low suspicion clinically for DVT because he does not have circumferential swelling or any calf or leg pain or swelling. I do not feel he needs laboratory work. X-rays were obtained of the right foot and 3 views and interpreted by myself independently as no evidence of acute fracture. No gas in the tissue. I reviewed the radiology report which confirms my independent interpretation. At this point in time, he will be given a postoperative shoe and referred to podiatry. He was also given a prescription for naproxen. He will continue to elevate his foot at home. Return instructions to the emergency department were reviewed. Disposition is discharged home in stable condition. History & Record Review Discussion w/independent historian: Patient and Significant other Radiography X-Ray: Read by ED Physician, Read by Radiologist and No Fracture Diagnostic Testing: Clinical Impression(s) from Imaging Studies Foot X-Ray 11/17/24 10:50 IMPRESSION: NO ACUTE FRACTURE OR DISLOCATION. Reading Location: [facility] Discharge Plan Triage Chief Complaint: Lower Extremity Injury ED Provider: Lito Brewer Dx/Rx/DC Orders Clinical Impression: Acute pain of right foot, Foot sprain, Plantar fascia syndrome Instructions: ED Foot Sprain, ED Plantar Fasciitis Prescriptions: New naproxen [Naprosyn] 500 mg tablet 500 mg PO BID PRN (Reason: pain) Qty: 20 0RF No Action atorvastatin 20 mg tablet 20 mg PO DAILY Patient Comments: take 1 tablet by mouth once daily omeprazole 40 mg capsule,delayed release(DR/EC) 40 mg PO DAILY Patient Comments: take 1 capsule by mouth once daily BEFORE A MEAL amlodipine 10 mg tablet 10 mg PO DAILY Patient Comments: take 1 tablet by mouth once daily metformin 500 mg tablet extended release 24 hr 500 mg PO BID Patient Comments: take 1 tablet by mouth twice a day lisinopril 10 mg tablet 10 mg PO DAILY Patient Comments: take 1 tablet by mouth once daily gabapentin 300 mg capsule 300 mg PO TID Patient Comments: take 1 capsule by mouth three times a day tizanidine [Zanaflex] 4 mg capsule 4 mg PO TID PRN (Reason: muscle spasticity) Qty: 20 0RF naproxen [Naprosyn] 500 mg tablet 500 mg PO BID PRN (Reason: pain) Qty: 20 0RF Primary Care Provider: Araseli Delgado NP Referrals: Russ Mayberry DPM [Med Staff - Active Staff] - As soon as possible Araseli Delgado NP, [employer] [Primary Care Provider] - Activity Restrictions/Additional Instructions: Wear postoperative shoe for walking or standing. Follow-up with podiatry soon as possible. Return with new or worsening symptoms including chest pain, shortness of breath, redness of the foot or increased pain Print Language: Czech Disposition Disposition: Home, Self Care
[2024-11-17 12:06] VITALS: BP 136/76; PULSE 86; RESP 16; TEMP 37.2; O2SAT 98
== END 2024-11-17 12:07 | disposition home or self-care (01) ==
PROVIDERS: Emergency Provider Emergency Medicine; PCP Nurse Practitioner Primary Care; Visit Provider Emergency Medicine
DX: S93.601A Unspecified sprain of right foot, initial encounter (principal); X58.XXXA Exposure to other specified factors, initial encounter; M72.2 Plantar fascial fibromatosis; G62.9 Polyneuropathy, unspecified; M19.90 Unspecified osteoarthritis, unspecified site; Z79.899 Other long term (current) drug therapy; Z87.891 Personal history of nicotine dependence
CPT/HCPCS: 73630; 99283